=== PATIENT | female | born 1945 | race Asian ===

== ENCOUNTER 2017-01-18 19:34 | Observation (INO) | payer MEDICARE, OTHER ==
[~2017-01-18] VITALS: Ht 152.4 cm; Wt 75.0 kg
[~2017-01-18 19:34] MED LIST: ATOR20TA38 PO; DICY10CA60 PO; DICY10CA62 PO; MAG355OR15 PO; OMEP20CA16 PO; ONDA4TAB14 PO
[2017-01-18 23:33] LABS: URINE BLOOD (Dip) POC 1+ (NEGATIVE)
[2017-01-18] MEDS ORDERED: LIDOCAINE/MYLANTA 40 ML BTL PO STA (23:39)
[2017-01-18] MEDS ORDERED: FAMOTIDINE 20 MG INJ IV STA (23:39)
[2017-01-18] MEDS ORDERED: ASPIRIN 325 MG TAB PO STA (23:39)
[2017-01-19 00:05] LABS: BASOPHILS % 0.1 % (0.0-2.0); EOSINOPHILS # 0.1 10^3/ul (0.0-0.5); EOSINOPHILS % 0.9 % (0.0-7.0); HEMATOCRIT 41.7 % (37.0-47.0); HEMOGLOBIN 13.6 g/dl (12.0-16.0); LYMPHOCYTES % 30.7 % (15.0-51.0); MEAN CORPUSCULAR HEMOGLOBIN 29.6 pg (29.0-33.0); MEAN CORPUSCULAR HGB CONC 32.6 g/dl (32.0-37.0); MEAN CORPUSCULAR VOLUME 90.7 fl (82.0-101.0); MONOCYTE # 0.6 10^3/ul (0.3-0.9); NEUTROPHILS % 61.9 % (39.0-77.0); PLATELET COUNT 235 10^3/UL (140-415); RED CELL DISTRIBUTION WIDTH 13.2 % (11.5-14.5); WHITE BLOOD COUNT 9.8 10^3/ul (4.8-10.8)
[2017-01-19 00:22] LABS: CARBON DIOXIDE 28 mmol/L (21-31); CREATININE 0.78 mg/dl (0.44-1.00); GLUCOSE 88 mg/dl (70-220)
[2017-01-19] MEDS ORDERED: CALC-277 PO (00:23)
[2017-01-19] MEDS ORDERED: ESOM40CA PO (00:25)
[2017-01-19] MEDS ORDERED: DICL75TA2 PO (00:25)
--- NOTE | 2017-01-19 00:27 | RADRPT ---
PROCEDURE: Portable chest x-ray. CLINICAL INDICATION: 71 years of age, female. Chest pain. TECHNIQUE: Portable AP view of the chest. COMPARISON: None available. FINDINGS: Tortuous aorta. Borderline heart size. Decreased lung volumes with vascular crowding and bilateral dependent atelectasis. Negative for pleural effusion or pneumothorax. No acute bony abnormality. IMPRESSION: Negative for evidence of acute chest process. RPTAT: HCTS Physician Valentina Date Time Electronically viewed and signed by Clayton Crooks Physician on 01/19/2017 00:26 CS/
[2017-01-19 00:36] LABS: TROPONIN-I < 0.012 ng/ml (0.00-0.12)
--- NOTE | 2017-01-19 00:37 | ERA ---
ER Documentation Chief Complaint Date/Time DATE: 01/19/17 TIME: 00:35 Chief Complaint heartburn, cp, sore throat and rash all over legs HPI This is a 71-year-old female who presents the emergency room with chest pain. History mostly provided by son given language barrier. It appears that earlier today the patient started to have chest pain that was central substernal occasionally burning. This was not postprandial or exertional it was constant. The family is also concerned about a small hyperemic rash to bilateral feet. She denies that it is pruritic. No associated fevers or chills. No back pain or abdominal pain. ROS All systems reviewed and are negative except as per history of present illness. Medications Home Meds Reported Medications Esomeprazole Mag Trihydrate (Nexium) 40 Mg Capsule.dr, 40 MG PO DAILY, #30 CAP 01/19/17 Diclofenac Sodium* (Diclofenac Sodium*) 75 Mg Tablet.dr, 75 MG PO BID, #60 TAB 01/19/17 Calcium Carbonate/Vitamin D3 (OYSTER SHELL 500 MG + VIT D TB) 1 Each Tablet, 1 EACH PO, TAB 01/19/17 Atorvastatin Calcium* (Atorvastatin Calcium*) 20 Mg Tablet, 20 MG PO QHS, #30 TAB 02/11/16 Discontinued Scripts Dicyclomine Hcl* (Bentyl*) 10 Mg Capsule, 10 MG PO QID, #20 CAP Prov:CINDY MCKENZIE 02/11/16 Ondansetron (Ondansetron Odt) 4 Mg Tab.rapdis, 4 MG PO Q6H Y for NAUSEA AND/OR VOMITING, #10 TAB Prov:CINDY MCKENZIE 02/11/16 Allergies Allergies: Coded Allergies: No Known Drug Allergies (Unverified Allergy, Unknown, 01/19/17) PMhx/Soc Anesthesia Reaction: No Hx Neurological Disorder: No Hx Respiratory Disorders: No Hx Cardiac Disorders: Yes (HTN, Chol) Hx Psychiatric Problems: No Hx Miscellaneous Medical Probl: Yes (DM) Hx Alcohol Use: No Hx Substance Use: No Hx Tobacco Use: No Smoking Status: Never smoker FmHx Family History: No diabetes Physical Exam Vitals Vital Signs Date Time Temp Pulse Resp B/P Pulse Ox O2 Delivery O2 Flow Rate FiO2 01/18/17 23:41 98.2 80 18 148/73 100 Room Air 01/18/17 20:26 99.3 89 18 124/69 100 Physical Exam General: Well developed, well nourished, no acute distress Head: Normocephalic, atraumatic. Eyes: Pupils equally reactive, EOM intact ENT: Moist mucous membranes Neck: Supple, no lymphadenopathy Respiratory: Lungs clear bilaterally, no distress Cardiovascular: RRR, no murmurs, rubs, or gallops Abdominal: Soft, non-tender, non-distended, no peritoneal signs : Deferred MSK: No edema, no unilateral swelling, 5/5 strength, slight hyperemia bilateral feet without evidence of urticaria petechia or purpura. 2+ dorsalis pedis and posterior tibial pulses. No lymphangitic spread Neurologic: Alert and oriented, moving all extremities, normal speech, no focal weakness, no cerebellar signs Skin: Skin is documented above Psych: Normal mood Result Diagram: 01/18/17 2345 01/18/17 2345 Results 24 hrs Laboratory Tests Test 01/18/17 23:39 01/18/17 23:45 Bedside Urine pH (LAB) 6.0 Bedside Urine Protein (LAB) Negative Bedside Urine Glucose (UA) Negative Bedside Urine Ketones (LAB) Negative Bedside Urine Blood 1+ Bedside Urine Nitrite (LAB) Negative Bedside Urine Leukocyte Esterase (L Negative White Blood Count 9.810^3/ul Red Blood Count 4.6010^6/ul Hemoglobin 13.6g/dl Hematocrit 41.7% Mean Corpuscular Volume 90.7fl Mean Corpuscular Hemoglobin 29.6pg Mean Corpuscular Hemoglobin Concent 32.6g/dl Red Cell Distribution Width 13.2% Platelet Count 66503^3/UL Mean Platelet Volume 11.0fl Neutrophils % 61.9% Lymphocytes % 30.7% Monocytes % 6.0% Eosinophils % 0.9% Basophils % 0.1% Nucleated Red Blood Cells % 0.0/100WBC Neutrophils # (Manual) 610^3/ul Lymphocytes # 3.010^3/ul Monocytes # 0.610^3/ul Eosinophils # 0.110^3/ul Basophils # 0.010^3/ul Nucleated Red Blood Cells # 0.010^3/ul Sodium Level 141mmol/L Potassium Level Pending Chloride Level Pending Carbon Dioxide Level 28mmol/L Anion Gap 113 Blood Urea Nitrogen 10mg/dl Creatinine 0.78mg/dl Glucose Level 88mg/dl Calcium Level Pending Troponin I < 0.012ng/ml Current Medications Medications (Trade) Dose Ordered Sig/Lisa Route PRN Reason Start Time Stop Time Status Last Admin Dose Admin Aspirin (Aspirin) 325 mg ONCE STAT PO 01/18/17 23:39 01/18/17 23:41 DC 01/18/17 23:53 Famotidine (Pepcid Iv) 20 mg ONCE STAT IV 01/18/17 23:39 01/18/17 23:41 DC 01/18/17 23:53 Miscellaneous Medication (Gi Cocktail (2)) 40 ml ONCE STAT PO 01/18/17 23:39 01/18/17 23:41 DC 01/18/17 23:53 Procedures/MDM EKG, MONITORS, & DIAGNOSTIC IMAGING: EKG: I reviewed and interpreted a 12-lead EKG. Rhythm: Normal sinus rhythm Ectopy: None Intervals: No abnormalities ST segments: No elevations or depressions T waves: No contiguous inversions Repeat EKG: EKG: I reviewed and interpreted a 12-lead EKG. Rhythm: Normal sinus rhythm Ectopy: None Intervals: No abnormalities ST segments: No elevations or depressions T waves: No contiguous inversions Chest x-ray: I reviewed and interpreted a 1 view of the chest Mediastinum: No enlargement Cardiac silhouette: No cardiomegaly Airspace: Clear lung morel bilaterally without evidence of pneumothorax Bones: No evidence of fracture LAB INTERPRETATION: Negative troponin MEDICAL DECISION MAKING: The patient's history, physical exam and clinical presentation is concerning for possible cardiogenic etiology and acute coronary syndrome versus GI process such as dyspepsia given her burning sensation. However the patient does have multiple risk factors and is not currently taking medications. Based on the patient's clinical exam and history and risk factors, I have a much lower clinical concern for pulmonary embolism, acute aortic dissection, pneumothorax, pneumonia, cardiac tamponade HEART Score: 5 MACE Rate: Upwards of 16.6% Shared Decision Making: We had a conversation regarding risk stratification, MACE rate, and the risks, benefits, alternatives of disposition planning options. Disposition planning: I strongly recommend hospitalization ER COURSE: Aspirin and GI cocktail provided. The patient is resting comfortably and is asymptomatic. The patient will be admitted for rule out of acute coronary syndrome. I kept the patient and/or family informed of laboratory and diagnostic imaging results throughout the emergency room course. DISPOSITION PLAN: Telemetry admission to rule out ACS CONSULTATION: Accepting care team and consultations: I discussed the current laboratory data, diagnostic imaging and emergency care provided. Admitting team: Dr. Vidal Admitting team indication: Insurance directed, provided clearance for observation admission here Departure Diagnosis: Primary Impression: Chest pain Qualified Code: R07.9 - Chest pain, unspecified type Condition: Stable DEVEN CALDERA MD Jan 19, 2017 00:35
[2017-01-19 00:53] LABS: ANION GAP 113 (8-16); BLOOD UREA NITROGEN 10 mg/dl (7-20); SODIUM 141 mmol/L (135-144)
[2017-01-19] MEDS ORDERED: ONDANSETRON 4 MG INJ IV PRN ×2 (01:30→02:30)
[2017-01-19] MEDS ORDERED: ACETAMINOPHEN 325 MG TAB PO PRN (01:30)
[2017-01-19 01:39] VITALS: TEMP 98.2
[2017-01-19 02:10] LABS: CHLORIDE 103 mmol/L (97-110); POTASSIUM 3.7 mmol/L (3.5-5.1)
--- NOTE | 2017-01-19 02:19 | HP ---
Date/Time of Note Date/Time of Note DATE: 01/19/17 TIME: 02:09 Assessment/Plan VTE Prophylaxis VTE Prophylaxis Intervention: LMWH Lines/Catheters IV [facility]ter [facility] Saline Lock Assessment/Plan Assessment/Plan 59-year-old female brought in by family because of chest pain 1. Chest pain rule out acute coronary syndrome Patient's is likely GI in origin based on symptomatology and history, however she does have risk factors and so will be ruled out 2. Bilateral feet rash 3. Hypertension well controlled 4. Chronic acid reflux 5. Chronic OA on nsaid therapy PLAN: Telemetry admission, trend cardiac enzymes, 2d echo if none recently and possible GI consult if no improvement oxygen and nitroglycerin therapy as needed. Daily aspirin if no allergy or bleeding risk. Get lipid profile, magnesium and TSH levels in am. Supportive care, PPI therapy, pain control. Hold NSAID therapy for now. HPI/ROS Admit Date/Time Admit Date/Time January 19, 2017 Hx of Present Illness This is a 71-year-old female who had presented to the emergency room with chest pain that is said to have pain of one days duration. The patient has a long time history of acid reflux and patient was said to be midsternal and occasionally burning. However the patient is a poor historian so the exact nature of the pain is uncertain. She also has a history of hypertension and dyslipidemia. She has had no fever, she denies cough, she denies shortness of breath or diaphoresis. There has been no history of trauma to the chest. Pain is not reproducible on physical exam. She denies abdominal pain nausea vomiting or dysuria or hematuria. Patient is also on chronic NSAID therapy for arthritis. ROS 12 point review if systems was done and pertinent findings are as noted. PMH/Family/Social Past Medical History * Hypertension * Dyslipidemia * Acid reflux Past Surgical History Past Surgical Hx: no surgical history Family History Significant Family History: no pertinent family hx Social History Alcohol Use: sober Smoking Status: Never smoker Exam/Review of Systems Vital Signs Vitals VS - Last 72 Hours, by Label Date Time Temp Pulse Resp B/P Pulse Ox O2 Delivery O2 Flow Rate FiO2 01/19/17 01:39 98.2 74 16 102/67 100 Room Air 01/18/17 23:41 98.2 80 18 148/73 100 Room Air 01/18/17 20:26 99.3 89 18 124/69 100 Vital Signs Date Time Temp Pulse Resp B/P Pulse Ox O2 Delivery O2 Flow Rate FiO2 01/19/17 01:39 98.2 74 16 102/67 100 Room Air Exam Exam GENERAL: Patient is alert, oriented x 3, in no apparent distress; afebrile to touch. HEENT: Oropharynx is clear. There is no carotid bruit, no masses. Patient's pupils are equal, round and reactive to light bilaterally. Extraocular motions are intact. There is no scleral icterus. There is no facial asymmetry. NECK: Supple. LUNGS: Clear to auscultation bilaterally with good air entry. No Wheezes or crackles. HEART: S1, S2. No murmur, gallops or rubs. Regular rate and rhythm. ABDOMEN: Soft, nontender. Normoactive bowel sounds. There are no stigmata of chronic liver disease. BACK: no costovertebral angle tenderness. GENITOURINARY: Deferred. EXTREMITIES: No edema. There is no cyanosis, clubbing. There are 2+ pulses bilaterally distally. NEUROLOGIC: The patient has no lateralizing signs. Cranial nerves II-XII are intact. SKIN: macular rash both feet Labs Result Diagram: 01/18/17 2345 01/18/17 2345 Procedures Procedures Laboratory Tests Test 01/18/17 23:39 01/18/17 23:45 Bedside Urine pH (LAB) 6.0 Bedside Urine Protein (LAB) Negative Bedside Urine Glucose (UA) Negative Bedside Urine Ketones (LAB) Negative Bedside Urine Blood 1+ Bedside Urine Nitrite (LAB) Negative Bedside Urine Leukocyte Esterase (L Negative White Blood Count 9.810^3/ul Red Blood Count 4.6010^6/ul Hemoglobin 13.6g/dl Hematocrit 41.7% Mean Corpuscular Volume 90.7fl Mean Corpuscular Hemoglobin 29.6pg Mean Corpuscular Hemoglobin Concent 32.6g/dl Red Cell Distribution Width 13.2% Platelet Count 31472^3/UL Mean Platelet Volume 11.0fl Neutrophils % 61.9% Lymphocytes % 30.7% Monocytes % 6.0% Eosinophils % 0.9% Basophils % 0.1% Nucleated Red Blood Cells % 0.0/100WBC Neutrophils # (Manual) 610^3/ul Lymphocytes # 3.010^3/ul Monocytes # 0.610^3/ul Eosinophils # 0.110^3/ul Basophils # 0.010^3/ul Nucleated Red Blood Cells # 0.010^3/ul Sodium Level 141mmol/L Potassium Level Pending Chloride Level Pending Carbon Dioxide Level 28mmol/L Anion Gap 113 Blood Urea Nitrogen 10mg/dl Creatinine 0.78mg/dl Glucose Level 88mg/dl Calcium Level Pending Troponin I < 0.012ng/ml Current Medications Medications (Trade) Dose Ordered Sig/Lisa Route PRN Reason Start Time Stop Time Status Last Admin Dose Admin Aspirin (Aspirin) 325 mg ONCE STAT PO 01/18/17 23:39 01/18/17 23:41 DC 01/18/17 23:53 325 MG Famotidine (Pepcid Iv) 20 mg ONCE STAT IV 01/18/17 23:39 01/18/17 23:41 DC 01/18/17 23:53 20 MG Miscellaneous Medication (Gi Cocktail (2)) 40 ml ONCE STAT PO 01/18/17 23:39 01/18/17 23:41 DC 01/18/17 23:53 40 ML Ondansetron HCl (Zofran Inj) 4 mg ER BRIDGE PRN IV NAUSEA AND/OR VOMITING 01/19/17 01:30 01/20/17 01:29 Acetaminophen (Tylenol Tab) 650 mg ER BRIDGE PRN PO MILD PAIN/FEVER 01/19/17 01:30 01/20/17 01:29 PROCEDURE: Portable chest x-ray. CLINICAL INDICATION: 71 years of age, female. Chest pain. TECHNIQUE: Portable AP view of the chest. COMPARISON: None available. FINDINGS: Tortuous aorta. Borderline heart size. Decreased lung volumes with vascular crowding and bilateral dependent atelectasis. Negative for pleural effusion or pneumothorax. No acute bony abnormality. IMPRESSION: Negative for evidence of acute chest process. I reviewed EKG Rate: Within normal limits Rhythm: sinus Note: No ST elevation or depressions noted concerning for acute ischemic event. KRISTA SAXENA Jan 19, 2017 02:19
[2017-01-19 02:20] LABS: CALCIUM 9.1 mg/dl (8.4-10.2)
[2017-01-19] MEDS ORDERED: NITROGLYCERIN 2% 1 GM OINT PKT TD ONE (04:30)
[2017-01-19 05:24] VITALS: Ht 152.4 cm; Wt 75.0 kg
[2017-01-19 05:33] VITALS: BP 108/62; PULSE 74; RESP 18
[2017-01-19] MEDS ORDERED: PANTOPRAZOLE (EC) 40 MG TAB PO SCH (06:00)
[2017-01-19 07:39] LABS: BASOPHILS % 0.1 % (0.0-2.0); EOSINOPHILS # 0.2 10^3/ul (0.0-0.5); EOSINOPHILS % 2.2 % (0.0-7.0); HEMATOCRIT 41.7 % (37.0-47.0); HEMOGLOBIN 13.3 g/dl (12.0-16.0); LYMPHOCYTES # 2.5 10^3/ul (0.8-2.9); LYMPHOCYTES % 34.7 % (15.0-51.0); MEAN CORPUSCULAR HEMOGLOBIN 29.3 pg (29.0-33.0); MEAN CORPUSCULAR HGB CONC 31.9 g/dl (32.0-37.0); MEAN CORPUSCULAR VOLUME 91.9 fl (82.0-101.0); MEAN PLATELET VOLUME 11.6 fl (7.4-10.4); MONOCYTE # 0.5 10^3/ul (0.3-0.9); MONOCYTES % 6.8 % (0.0-11.0); NEUTROPHILS % 55.9 % (39.0-77.0); PLATELET COUNT 238 10^3/UL (140-415); RED BLOOD COUNT 4.54 10^6/ul (4.20-5.40); RED CELL DISTRIBUTION WIDTH 13.4 % (11.5-14.5); WHITE BLOOD COUNT 7.3 10^3/ul (4.8-10.8)
[2017-01-19 08:00] VITALS: PULSE 82
[2017-01-19 08:36] LABS: ALBUMIN 4.1 g/dl (3.3-4.9); BILIRUBIN,INDIRECT 0.7 mg/dl (0-1.1); BILIRUBIN,TOTAL 0.7 mg/dl (0.2-1.3); CALCIUM 8.8 mg/dl (8.4-10.2); CHOL/HDL RATIO 4.8 RATIO; CREATININE 0.76 mg/dl (0.44-1.00); MAGNESIUM 2.2 mg/dl (1.7-2.5); POTASSIUM 4.4 mmol/L (3.5-5.1); TOTAL PROTEIN 7.1 g/dl (6.1-8.1)
[2017-01-19 08:53] LABS: CK-MB 1.14 ng/ml (0.0-2.4)
[2017-01-19 08:55] LABS: TROPONIN-I < 0.012 ng/ml (0.00-0.12)
[2017-01-19] MEDS ORDERED: CALCIUM/VITAMIN D (500/200) TAB PO SCH (09:00)
[2017-01-19] MEDS ORDERED: ASPIRIN (EC) 81 MG TAB PO SCH (09:00)
[2017-01-19] MEDS ORDERED: DOCUSATE SODIUM 100 MG CAP PO SCH (09:00)
[2017-01-19 10:06] LABS: CREATINE KINASE 132 IU/L (23-200)
--- NOTE | 2017-01-19 10:19 | DS ---
Date/Time of Note Date/Time of Note DATE: 01/19/17 TIME: 10:17 Discharge Summary Admission/Discharge Info Admit Date/Time Jan 19, 2017 at 01:18 Discharge Date/Time Discharge Diagnosis chest pain Patient Condition: Guarded Consults none Procedures CXR nl, troponins neg x 2 Hx of Present Illness This is a 71-year-old female who had presented to the emergency room with chest pain that is said to have pain of one days duration. The patient has a long time history of acid reflux and patient was said to be midsternal and occasionally burning. However the patient is a poor historian so the exact nature of the pain is uncertain. She also has a history of hypertension and dyslipidemia. She has had no fever, she denies cough, she denies shortness of breath or diaphoresis. There has been no history of trauma to the chest. Pain is not reproducible on physical exam. She denies abdominal pain nausea vomiting or dysuria or hematuria. Patient is also on chronic NSAID therapy for arthritis. Hospital Course Pt admitted for chest pain, symptoms resolved by the morning. Given pt's age and htn hx, reasonable to rule out cardiac etio. Using [place] language line I discussed this recommendation with the patient and she agreed. 30 minutes later pt's son who speaks both [place] and [place] states pt now requesting to leave. I discussed risks of leaving prior to cardiac evaluation including permanent cardiac damage and . Pt and son still requesting discharge. AMA paperwork completed. Home Meds Reported Medications Esomeprazole Mag Trihydrate (Nexium) 40 Mg Capsule., 40 MG PO DAILY, #30 CAP 01/19/17 Diclofenac Sodium* (Diclofenac Sodium*) 75 Mg Tablet., 75 MG PO BID, #60 TAB 01/19/17 Calcium Carbonate/Vitamin D3 (OYSTER SHELL 500 MG + VIT D TB) 1 Each Tablet, 1 EACH PO, TAB 01/19/17 Atorvastatin Calcium* (Atorvastatin Calcium*) 20 Mg Tablet, 20 MG PO QHS, #30 TAB 02/11/16 Discontinued Scripts Dicyclomine Hcl* (Bentyl*) 10 Mg Capsule, 10 MG PO QID, #20 CAP Prov:CINDY MCKENZIE 02/11/16 Ondansetron (Ondansetron Odt) 4 Mg Tab.rapdis, 4 MG PO Q6H Y for NAUSEA AND/OR VOMITING, #10 TAB Prov:CINDY MCKENZIE 02/11/16 Follow-up Plan Pt leaving AMA Primary Care Provider Not On Staff Doctor Time spent on discharge: > 30 minutes Pending Labs Laboratory Tests Test 01/18/17 23:39 01/18/17 23:45 01/19/17 06:05 Bedside Urine pH (LAB) 6.0 (5.0-8.5) Bedside Urine Protein (LAB) Negative (NEGATIVE) Bedside Urine Glucose (UA) Negative (NEGATIVE) Bedside Urine Ketones (LAB) Negative (NEGATIVE) Bedside Urine Blood 1+ (NEGATIVE) Bedside Urine Nitrite (LAB) Negative (NEGATIVE) Bedside Urine Leukocyte Esterase (L Negative (NEGATIVE) White Blood Count 9.810^3/ul (4.8-10.8) 7.310^3/ul (4.8-10.8) Red Blood Count 4.6010^6/ul (4.20-5.40) 4.5410^6/ul (4.20-5.40) Hemoglobin 13.6g/dl (12.0-16.0) 13.3g/dl (12.0-16.0) Hematocrit 41.7% (37.0-47.0) 41.7% (37.0-47.0) Mean Corpuscular Volume 90.7fl (82.0-101.0) 91.9fl (82.0-101.0) Mean Corpuscular Hemoglobin 29.6pg (29.0-33.0) 29.3pg (29.0-33.0) Mean Corpuscular Hemoglobin Concent 32.6g/dl (32.0-37.0) 31.9g/dl (32.0-37.0) Red Cell Distribution Width 13.2% (11.5-14.5) 13.4% (11.5-14.5) Platelet Count 20425^3/UL (140-415) 53537^3/UL (140-415) Mean Platelet Volume 11.0fl (7.4-10.4) 11.6fl (7.4-10.4) Neutrophils % 61.9% (39.0-77.0) 55.9% (39.0-77.0) Lymphocytes % 30.7% (15.0-51.0) 34.7% (15.0-51.0) Monocytes % 6.0% (0.0-11.0) 6.8% (0.0-11.0) Eosinophils % 0.9% (0.0-7.0) 2.2% (0.0-7.0) Basophils % 0.1% (0.0-2.0) 0.1% (0.0-2.0) Nucleated Red Blood Cells % 0.0/100WBC (0.0-0.0) 0.0/100WBC (0.0-0.0) Neutrophils # (Manual) 610^3/ul (1.7-7.5) 410^3/ul (1.7-7.5) Lymphocytes # 3.010^3/ul (0.8-2.9) 2.510^3/ul (0.8-2.9) Monocytes # 0.610^3/ul (0.3-0.9) 0.510^3/ul (0.3-0.9) Eosinophils # 0.110^3/ul (0.0-0.5) 0.210^3/ul (0.0-0.5) Basophils # 0.010^3/ul (0.0-0.1) 0.010^3/ul (0.0-0.1) Nucleated Red Blood Cells # 0.010^3/ul (0.0-0.0) 0.010^3/ul (0.0-0.0) Sodium Level 141mmol/L (135-144) 141mmol/L (135-144) Potassium Level 3.7mmol/L (3.5-5.1) 4.4mmol/L (3.5-5.1) Chloride Level 103mmol/L (97-110) 102mmol/L (97-110) Carbon Dioxide Level 28mmol/L (21-31) 28mmol/L (21-31) Anion Gap 113 (8-16) 15 (8-16) Blood Urea Nitrogen 10mg/dl (7-20) 10mg/dl (7-20) Creatinine 0.78mg/dl (0.44-1.00) 0.76mg/dl (0.44-1.00) Glucose Level 88mg/dl (70-220) 90mg/dl (70-220) Calcium Level 9.1mg/dl (8.4-10.2) 8.8mg/dl (8.4-10.2) Troponin I < 0.012ng/ml (0.00-0.12) < 0.012ng/ml (0.00-0.12) Hemoglobin A1c 5.3% (0-5.9) Magnesium Level 2.2mg/dl (1.7-2.5) Total Bilirubin 0.7mg/dl (0.2-1.3) Direct Bilirubin 0.00mg/dl (0.00-0.20) Indirect Bilirubin 0.7mg/dl (0-1.1) Aspartate Amino Transf (AST/SGOT) 31IU/L (15-46) Alanine Aminotransferase (ALT/SGPT) 20IU/L (13-69) Alkaline Phosphatase 64IU/L (42-121) Creatine Kinase Pending Creatine Kinase Index Pending Creatinine Kinase MB (Mass) 1.14ng/ml (0.0-2.4) Total Protein 7.1g/dl (6.1-8.1) Albumin 4.1g/dl (3.3-4.9) Triglycerides Level 139mg/dl (0-149) Cholesterol Level 191mg/dl (100-200) LDL Cholesterol, Calculated 124mg/dl HDL Cholesterol 39mg/dl (33-92) Cholesterol/HDL Ratio 4.8RATIO Thyroid Stimulating Hormone (TSH) Pending ALYSA FRANCISCO MD Jan 19, 2017 10:19
[2017-01-19 10:52] VITALS: BP 104/57; PULSE 80; RESP 20
--- NOTE | 2017-01-19 12:19 | RADRPT ---
Echocardiogram Report Patient Name: GERONIMO GUZMAN Gender: Female Date: 1945 Study Date: 19-Jan-2017 Dulser: Thomas Bermudez [facility] Location: 3306 Ref. Physician: KRISTA SAXENA Quality: Adequate Procedures: Transthoracic echocardiogram with complete 2D, M-Mode, and doppler examination. Indications: Chest Pain. 2D/M Mode Doppler Measurement Value Normal Ranges Measurement Value Normal Ranges LVIDd 2D 3.1 3.5 - 5.6 cm AV Peak Sunday 1.4 m/sec LVIDs 2D 2.0 2.1 - 4.1 cm AV Peak PG 7.0 mmHg FS 2D 36.9 % AI Peak PG 63.0 mmHg LVPWd 2D 1.1 0.6 - 1.1 cm AI Peak Sunday 4.0 m/sec IVSd 2D 1.1 0.6 - 1.1 cm AI PHT 647.0 msec IVS/LVPW 2D 1.0 LVOT Peak Sunday 0.9 m/sec AoR Diam 2D 2.4 2.0 - 3.7 cm LVOT Peak PG 4.0 mmHg LA/Ao 2D 1 0 - 1 MV E Peak Sunday 0.7 m/sec EDV 2D 30.4 cm3 MV A Peak Usnday 0.9 m/sec ESV 2D 7.7 cm3 MV E/A 0.8 LA Dimen 2D 2.8 2.3 - 4.0 cm MV Decel Time 215 msec MV E/A 0.8 TR Peak Sunday 3.0 m/sec TR Peak PG 35.0 mmHg RVSP 38.0 mmHg Findings Left Ventricle: Normal left ventricular systolic function. Normal left ventricular cavity size. Mild concentric left ventricular hypertrophy. Ejection fraction is visually estimated at 65 %. Tissue Doppler/Mitral Doppler indices are consistent with impaired relaxation (Stage I diastolic dysfunction). Right Ventricle: Normal right ventricular size. Normal right ventricular systolic function. Left Atrium: There is mild enlargement of left atrium. Right Atrium: The right atrium is normal in size. Mitral Valve: Normal appearance of the mitral valve. Trace mitral regurgitation. Aortic Valve: No hemodynamically significant aortic stenosis by doppler. Aortic cusps appear mildly calcified. Mild aortic valve regurgitation. Tricuspid Valve: Normal appearance of the tricuspid valve. Estimated peak PA systolic pressure 38 mmHg. There is mild tricuspid regurgitation. Pulmonic Valve: Pulmonic valve not well visualized. Pericardium: Normal pericardium with no significant pericardial effusion. Aorta: Normal aortic root. IVC: Normal size and normal respiratory collapse consistent with normal right atrial pressure. Conclusions Normal left ventricular systolic function. Normal left ventricular cavity size. Mild concentric left ventricular hypertrophy. Ejection fraction is visually estimated at 65 %. Tissue Doppler/Mitral Doppler indices are consistent with impaired relaxation (Stage I diastolic dysfunction). Mild aortic valve regurgitation. Estimated peak PA systolic pressure 38 mmHg based on RA pressure of 3 mmHg. Electronically Signed By: Freddy Chaney 19-Jan-2017 12:19:29 -0700 Patient Name: GERONIMO GUZMAN Study Date: 19-Jan-2017 [id number]
[2017-01-19 14:14] LABS: THYROID STIMULATING HORMONE 1.79 MIU/L (0.465-4.680)
[2017-01-19] MEDS ORDERED: ATORVASTATIN 20 MG TAB PO SCH (21:00)
== END 2017-01-19 10:15 | disposition left against medical advice (07) ==
LOC: E/R 19:34 → MS3 01-19 01:18
PROVIDERS: ADMIT Family Medicine; ATTEND Family Medicine
DX: R07.9 Chest pain, unspecified (principal); R21 Rash and other nonspecific skin eruption; I10 Essential (primary) hypertension; E11.9 Type 2 diabetes mellitus without complications; K21.9 Gastro-esophageal reflux disease without esophagitis; M19.90 Unspecified osteoarthritis, unspecified site
CPT/HCPCS: 36415; 71010; 80048; 80061; 80076; 81003; 82550; 82553; 83036; 83735; 84443; 84484; 85025; 93005; 93306; 96374; 99285; G0378; 99217